=== PATIENT | female | born 1975 | race Caucasian/White ===

== ENCOUNTER 2018-08-01 23:10 | Emergency (ER) | payer BC, MEDICAID ==
--- NOTE | 2018-08-01 23:31 | ED Physician Documentation ---
History of Present Illness - Stated complaint Stated Complaint: RT LEG PX/8 DAYS - Chief complaint Chief Complaint: Ext Problem - Additonal information Additional information: 43-year-old female presents the emergency department with right leg pain which started 8 days ago and has progressively worsened. The pain is in the inside of her leg behind her knee and tracks up. The patient reports a tight feeling. The patient denies swelling. No recent injury. The patient denies pain in her hip, knees or ankles. Symptoms are described as moderate. No attempts at symptom management. No other associated symptoms Review of Systems Constitutional: denies: Fever Eyes: denies: Discharge Ears: denies: Ear pain Respiratory: denies: Dyspnea Skin: denies: Rash Musculoskeletal: reports: Extremity pain. denies: Joint pain, Extremity swelling Neurologic: denies: Generalized weakness PD PAST MEDICAL HISTORY - Past Medical History Past Medical History: No Cardiovascular: None Respiratory: None Neuro: None Endocrine/Autoimmune: None GI: None MEAL PACKER: None : None HEENT: None Psych: None Musculoskeletal: None Derm: None - Past Surgical History Past Surgical History: Yes General: Appendectomy - Allergies Allergies/Adverse Reactions: Allergies Allergy/AdvReac Type Severity Reaction Status Date / Time No Known Drug Allergies Allergy Verified 08/01/18 23:21 - Social History Does the pt smoke?: No Smoking Status: Never smoker Does the pt drink ETOH?: No Does the pt have substance abuse?: No - Immunizations Immunizations are current?: No - POLST Patient has POLST: No PD ED PE NORMAL - General General: Alert and oriented X 3, No acute distress - HEENT HEENT: Atraumatic, PERRL, EOMI - Cardiac Cardiac: RRR, Strong equal pulses - Respiratory Respiratory: No respiratory distress - Derm Derm: Normal color - Extremities Extremities: No deformity, Normal ROM s pain, No edema, No calf tenderness / cord. No: No tenderness to palpate (The patient has tenderness to palpation in the medial aspect of the distal thigh and through the posterior knee and calf. There is no swelling. No skin changes. Normal dorsalis pedis pulse and brisk cap refill. Normal range of motion. No other associated symptoms) Results - Vitals Vitals: Vital Signs - 24 hr 08/01/18 23:19 Temperature 37.0 C Heart Rate 69 Respiratory 17 Rate Blood Pressure 131/113 H O2 Saturation 96 Oxygen O2 Source Room air - Labs Labs: Laboratory Tests 08/01/18 23:40 Sodium 138 Potassium 3.6 Chloride 102 Carbon Dioxide 27 Anion Gap 9.0 BUN 12 Creatinine 0.8 Estimated GFR (MDRD) 78 L Glucose 100 Calcium 9.1 Total Creatine Kinase 42 - Rads (name of study) US Radiology: Final report received PD MEDICAL DECISION MAKING - ED course ED course: No DVT on ultrasound, the patient appears appropriate for discharge and ongoing outpatient management. I discussed with her the findings and plan she understands and agrees. Recommended close follow-up with primary care. I discussed warning signs and recommended returning to the emergency department for any worsening or any concerns. Departure - Departure Disposition: 01 Home, Self Care Clinical Impression: Leg pain Qualifiers: Laterality: right Qualified Code(s): M79.604 - Pain in right leg Condition: Good Instructions: ED Strain Muscle Ext Follow-Up: JESSE SANTANA ND [Primary Care Provider] - Within 1 week Comments: Please return for worsening symptoms or any concerns
[2018-08-02 00:02] LABS: CALCIUM 9.1 mg/dL (8.5-10.3); CREATININE 0.8 mg/dL (0.4-1.0)
--- NOTE | 2018-08-02 00:45 | Ultrasound Report ---
Reason: leg pain Procedure Date: 08/02/2018 Accession Number: [id number] / [id number] Procedure: US - Duplex Ext Veins Right CPT Code: FULL RESULT: EXAM: RIGHT LOWER EXTREMITY VENOUS ULTRASOUND EXAM DATE: 08/02/2018 12:18 AM. CLINICAL HISTORY: Leg pain. COMPARISON: None. TECHNIQUE: Real-time sonographic vascular imaging was performed by the sales correspondence clerk through the lower extremity utilizing both color-flow and Doppler spectral analysis. Multiple life assurance representative static images were saved for review. FINDINGS: Common Femoral Vein (CFV): Normal. CFV-GSV Junction: Normal. Profunda Femoral Vein (PFV): Normal. Femoral Vein (FV) Prox: Normal. Femoral Vein (FV) Mid: Normal. Femoral Vein (FV) Dist: Normal. Popliteal Vein: Normal. Posterior Tibial Veins: Normal. Peroneal Veins: Normal. Other: None. IMPRESSION: No evidence for deep venous thrombosis. RADIA
[2018-08-02 00:53] VITALS: BP 120/79
== END 2018-08-02 00:53 | disposition home or self-care (01) ==
LOC: ED 23:10
DX: M79.604 Pain in right leg (principal)
CPT/HCPCS: 36415; 80048; 82550; 99282; 99283

== ENCOUNTER 2020-02-09 00:23 | Outpatient (CLI) | payer MEDICAID | END 2020-02-09 00:24 | disposition EMS.NT | LOC: EMS 00:23 | PROVIDERS: ATTEND Surgery | DX: R00.9 Unspecified abnormalities of heart beat (principal); R20.2 Paresthesia of skin ==

== ENCOUNTER 2020-03-31 23:53 | Emergency (ER) | payer MEDICAID ==
--- NOTE | 2020-03-31 23:56 | ED Physician Documentation ---
History of Present Illness - Stated complaint Stated Complaint: AB PX - History obtained from History obtained from: Patient (45 y/o f with diffuse abd pain without n/v/d/c. no fevers. prior appendectomy. otherwise healthy. denies dysuria, flank pain, syncope. no cp or sob.) Review of Systems Constitutional: reports: Reviewed and negative Eyes: reports: Reviewed and negative Ears: reports: Reviewed and negative Nose: reports: Reviewed and negative Throat: reports: Reviewed and negative Cardiac: reports: Reviewed and negative Respiratory: reports: Reviewed and negative GI: reports: Abdominal Pain : reports: Reviewed and negative Skin: reports: Reviewed and negative Musculoskeletal: reports: Reviewed and negative Neurologic: reports: Reviewed and negative Psychiatric: reports: Reviewed and negative Endocrine: reports: Reviewed and negative Immunocompromised: reports: Reviewed and negative PD PAST MEDICAL HISTORY - Past Medical History Cardiovascular: None Respiratory: None Neuro: None Endocrine/Autoimmune: None GI: None SENIOR PLANNING MANAGER: None : None HEENT: None Psych: None Musculoskeletal: None Derm: None - Past Surgical History Past Surgical History: Yes General: Appendectomy - Allergies Allergies/Adverse Reactions: Allergies Allergy/AdvReac Type Severity Reaction Status Date / Time No Known Drug Allergies Allergy Verified 04/01/20 00:07 - Social History Does the pt smoke?: No Smoking Status: Never smoker Does the pt drink ETOH?: No Does the pt have substance abuse?: No - Immunizations Immunizations are current?: No - POLST Patient has POLST: No PD ED PE NORMAL - Vitals Vital signs reviewed: Yes - General General: Alert and oriented X 3, No acute distress, Well developed/nourished - HEENT HEENT: PERRL - Neck Neck: Supple, no meningeal sign - Cardiac Cardiac: RRR, No murmur - Respiratory Respiratory: Clear bilaterally - Abdomen Abdomen: Normal bowel sounds, Soft, Non tender, Non distended, No organomegaly, Other (negative murphys, rovsings, psoas, mcburneys point. no midline abd pulsatile mass.) - Derm Derm: Warm and dry - Extremities Extremities: No deformity - Neuro Neuro: Alert and oriented X 3 - Psych Psych: Normal mood, Normal affect Results - Vitals Vitals: Vital Signs - 24 hr 03/31/20 04/01/20 04/01/20 23:56 00:13 01:00 Temperature 36.8 C Heart Rate 81 77 66 Respiratory 18 20 17 Rate Blood Pressure 148/87 H 145/94 H O2 Saturation 100 100 100 04/01/20 01:52 Temperature Heart Rate 76 Respiratory 16 Rate Blood Pressure 127/78 O2 Saturation 98 Oxygen O2 Source Room air - Labs Labs: Laboratory Tests 04/01/20 04/01/20 04/01/20 00:11 00:30 00:30 WBC 4.8 RBC 4.63 Hgb 14.0 Hct 41.7 MCV 90.1 MCH 30.2 MCHC 33.6 RDW 11.8 L Plt Count 177 MPV 9.0 Neut # (Auto) 2.8 Lymph # (Auto) 1.4 L [place] # (Auto) 0.4 Eos # (Auto) 0.1 Baso # (Auto) 0.1 Absolute Nucleated RBC 0.00 Nucleated RBC % 0.0 PT 12.0 INR 1.1 APTT 29.2 Sodium Potassium Chloride Carbon Dioxide Anion Gap BUN Creatinine Estimated GFR (MDRD) Glucose Lactic Acid Calcium Total Bilirubin AST ALT Alkaline Phosphatase Total Creatine Kinase Total Protein Albumin Globulin Albumin/Globulin Ratio Lipase Urine Color YELLOW Urine Clarity CLEAR Urine pH 7.0 Ur Specific [place] 1.020 Urine Protein NEGATIVE Urine Glucose (UA) NEGATIVE Urine Ketones NEGATIVE Urine Occult Blood NEGATIVE Urine Nitrite NEGATIVE Urine Bilirubin NEGATIVE Urine Urobilinogen 0.2 (NORMAL) Ur Leukocyte Esterase TRACE H Urine RBC None Seen Urine WBC 0-3 Ur Squamous Epith Cells MOD Squamous H Amorphous Sediment Marked Urine Bacteria Rare Ur Microscopic Review INDICATED Urine Culture Comments NOT INDICATED Urine HCG, Qual NEGATIVE 04/01/20 04/01/20 00:30 00:30 WBC RBC Hgb Hct MCV MCH MCHC RDW Plt Count MPV Neut # (Auto) Lymph # (Auto) [place] # (Auto) Eos # (Auto) Baso # (Auto) Absolute Nucleated RBC Nucleated RBC % PT INR APTT Sodium 137 Potassium 3.1 L Chloride 103 Carbon Dioxide 25 Anion Gap 9.0 BUN 16 Creatinine 0.8 Estimated GFR (MDRD) 77 L Glucose 109 H Lactic Acid 1.3 Calcium 9.2 Total Bilirubin 0.6 AST 17 ALT 13 Alkaline Phosphatase 39 L Total Creatine Kinase 49 Total Protein 7.0 Albumin 4.4 Globulin 2.6 Albumin/Globulin Ratio 1.7 Lipase 28 Urine Color Urine Clarity Urine pH Ur Specific [place] Urine Protein Urine Glucose (UA) Urine Ketones Urine Occult Blood Urine Nitrite Urine Bilirubin Urine Urobilinogen Ur Leukocyte Esterase Urine RBC Urine WBC Ur Squamous Epith Cells Amorphous Sediment Urine Bacteria Ur Microscopic Review Urine Culture Comments Urine HCG, Qual PD MEDICAL DECISION MAKING - ED course Complexity details: reviewed results, re-evaluated patient (pain resolved, patient updated and reexamined multiple times, pain is completely resolved, ct ap ordered, patient refusing requesting to be dcd home. should return for worsening pain or any concerns. ), considered differential (pancreatitis, cholelithiasis, diverticulitis. ), d/w patient Departure - Departure Disposition: 01 Home, Self Care Clinical Impression: Abdominal pain Qualifiers: Abdominal location: generalized Qualified Code(s): R10.84 - Generalized abdominal pain Condition: Stable Instructions: ED Abdominal Pain Unkn Cause Follow-Up: JESSE SANTANA ND [Primary Care Provider] - 04/01/20 Comments: Call your primary care provider today to schedule follow-up visit. Discharge Date/Time: 04/01/20 01:52
[2020-04-01 00:17] LABS: BILIRUBIN,URINE NEGATIVE (NEGATIVE); GLUCOSE, URINE (UA) NEGATIVE (NEGATIVE); KETONES,URINE (UA) NEGATIVE (NEGATIVE); LEUKOCYTE ESTERASE, URINE TRACE (NEGATIVE); NITRITE,URINE NEGATIVE (NEGATIVE); OCCULT BLOOD,URINE NEGATIVE (NEGATIVE); PROTEIN,URINE NEGATIVE (NEGATIVE); UROBILINOGEN,URINE 0.2 (NORMAL) E.U./dL (NORMAL)
[2020-04-01 00:20] LABS: CLARITY,URINE CLEAR (CLEAR); HCG UR QUAL NEGATIVE
[2020-04-01 00:24] LABS: AMORPHOUS SEDIMENT,UR Marked /LPF; BACTERIA,URINE Rare /HPF (None Seen); RBC,URINE None Seen /HPF (0-5); SQUAMOUS EPITHELIAL CELL,UR MOD Squamous (<= Few)
[2020-04-01] MEDS ORDERED: ONDANSETRON 4 MG/2 ML VIAL IVP STA (00:24)
[2020-04-01] MEDS ORDERED: SODIUM CHLORIDE 0.9% 1,000 ML IV STA (00:24)
[2020-04-01] MEDS ORDERED: MORPHINE 2 MG/ML CARPUJECT IVP STA (00:24)
[2020-04-01 00:43] LABS: BASOPHILS # (AUTO) 0.1 10^3/uL (0.0-0.1); EOSINOPHILS # (AUTO) 0.1 10^3/uL (0.0-0.7); EOSINOPHILS % (AUTO) 2.9 %; LYMPHOCYTES # (AUTO) 1.4 10^3/uL (1.5-3.5); LYMPHOCYTES % (AUTO) 29.5 %; MEAN CORPUSCULAR HEMOGLOBIN 30.2 pg (27.0-31.0); MEAN CORPUSCULAR HGB CONC 33.6 g/dL (32.0-36.0); MEAN CORPUSCULAR VOLUME 90.1 fL (81.0-99.0); MONOCYTES # (AUTO) 0.4 10^3/uL (0.0-1.0); MONOCYTES % (AUTO) 9.1 %; NEUTROPHILS # (AUTO) 2.8 10^3/uL (1.5-6.6); NEUTROPHILS % (AUTO) 57.1 %; PLT - PLATELET COUNT 177 10^3/uL (130-450); RED BLOOD COUNT 4.63 10^6/uL (4.20-5.40); RED CELL DISTRIBUTION WIDTH 11.8 % (12.0-15.0); WHITE BLOOD COUNT 4.8 x10^3/uL (4.8-10.8)
[2020-04-01 00:49] LABS: INR 1.1 (0.8-1.2)
[2020-04-01 00:55] LABS: ALBUMIN 4.4 g/dL (3.2-5.5); ALBUMIN/GLOBULIN RATIO 1.7 (1.0-2.2); BILIRUBIN,TOTAL 0.6 mg/dL (0.2-1.0); CALCIUM 9.2 mg/dL (8.5-10.3); CREATININE 0.8 mg/dL (0.4-1.0)
[2020-04-01 00:56] LABS: PARTIAL THROMBOPLASTIN TIME 29.2 secs (24.9-33.3)
[2020-04-01] MEDS ORDERED: IOVERSOL 320 100 ML VIAL IVP ONE (01:03)
[2020-04-01 01:53] VITALS: BP 127/78
== END 2020-04-01 01:52 | disposition home or self-care (01) ==
LOC: ED 23:53
DX: R10.84 Generalized abdominal pain (principal); Z90.49 Acquired absence of other specified parts of digestive tract
CPT/HCPCS: 36415; 80053; 81001; 81003; 81025; 82550; 83605; 83690; 85025; 85610; 85730; 87086; 96360; 99283